=== PATIENT | male | born 1995 | race Caucasian/White ===

== ENCOUNTER 2018-04-22 17:00 | Emergency (ER) | payer OTHER ==
--- NOTE | 2018-04-22 19:02 | C.PDOC ---
History Of Present Illness 23 y/o male, w/PMhx of ? right medial malleolar fracture few months ago, presents to the ER c/o right ankle pain. Pt was running and twisted his right foot. Pt notes that he has been wearing an aircast.Denies having weakness and numbness. <Ariana Rooney - Last Filed: 04/22/18 20:58> History Per: Patient History/Exam Limitations: no limitations Onset/Duration Of Symptoms: Days Current Symptoms Are (Timing): Still Present Severity: Moderate - Ankle/Foot Description Of Injury: Twisted (right foot) <Ariana Rooney - Last Filed: 04/22/18 20:58> <Eugenia Almonte - Last Filed: 04/22/18 21:44> Time Seen by Provider: 04/22/18 17:54 Chief Complaint (Nursing): Lower Extremity Problem/Injury Past Medical History Reviewed: Historical Data, Nursing Documentation, Vital Signs Vital Signs: Last Vital Signs Temp 97.8 F 04/22/18 17:05 Pulse 70 04/22/18 17:05 Resp 20 04/22/18 17:05 BP 154/80 H 04/22/18 17:05 Pulse Ox 100 04/22/18 17:05 - Medical History PMH: No Chronic Diseases Other Surgeries: Hx of surgeries Family History: States: No Known Family Hx - Social History Hx Tobacco Use: No Hx Alcohol Use: No Hx Substance Use: Yes - Immunization History Hx Tetanus Toxoid Vaccination: Yes Hx Influenza Vaccination: No Hx Pneumococcal Vaccination: No <Ariana Rooney - Last Filed: 04/22/18 20:58> Vital Signs: Last Vital Signs Temp 97.8 F 04/22/18 17:05 Pulse 70 04/22/18 17:05 Resp 20 04/22/18 17:05 BP 154/80 H 04/22/18 17:05 Pulse Ox 100 04/22/18 21:01 <Eugenia Almonte - Last Filed: 04/22/18 21:44> Review Of Systems Musculoskeletal: Positive for: Other (right ankle pain) Neurological: Negative for: Weakness, Numbness <Ariana Rooney - Last Filed: 04/22/18 20:58> Physical Exam - Physical Exam Appears: Non-toxic, No Acute Distress Skin: Normal Color, Warm, Dry Head: Atraumatic, Normacephalic Eye(s): bilateral: Normal Inspection Nose: Normal Oral Mucosa: Moist Neck: Supple Chest: Symmetrical Extremity: Normal ROM, Tenderness (mild tenderness to anterior medial malleolus), No Swelling Pulses: Left Dorsalis Pedis: Normal, Right Dorsalis Pedis: Normal Neurological/Psych: Oriented x3, Normal Speech, Normal Motor, Normal Sensation <Ariana Rooney - Last Filed: 04/22/18 20:58> ED Course And Treatment O2 Sat by Pulse Oximetry: 100 (RA) Pulse Ox Interpretation: Normal <Ariana Rooney - Last Filed: 04/22/18 20:58> Medical Decision Making Medical Decision Making: Plan: --Tylenol PO --X-Ray- Right Ankle 2053 pt with ? new avulsion fx of medial malleolus, unclear if new or chronic. posterior splint and crutches. f/u ortho <Ariana Rooney - Last Filed: 04/22/18 20:58> Disposition Counseled Patient/Family Regarding: Studies Performed, Diagnosis, Need For Followup, Rx Given - Disposition Disposition Time: 20:58 <Ariana Rooney - Last Filed: 04/22/18 20:58> <Eugenia Almonte - Last Filed: 04/22/18 21:44> - Disposition Referrals: Zac Coon MD [Staff Provider] - Disposition: HOME/ ROUTINE Condition: GOOD Additional Instructions: Keep splint clean and dry. No weight bearing in right leg. Use crutches. Make follow up appointment with orthopedics. Tylenol for pain. Prescriptions: Acetaminophen [Tylenol 325mg tab] 650 mg PO Q6 #30 tab Instructions: Avulsion Fracture (DC) Forms: [employer] Keyboards (Malagasy) - Clinical Impression Clinical Impression: Avulsion fracture of right ankle - PA / COPPERSMITH APPRENTICE / Resident Statement MD/DO has reviewed & agrees with the documentation as recorded. - Scribe Statement The provider has reviewed the documentation as recorded by the Scribe Darion Muñoz Provider Attestation All medical record entries made by the Scribe were at my direction and personally dictated by me. I have reviewed the chart and agree that the record accurately reflects my personal performance of the history, physical exam, medical decision making, and the department course for this patient. I have also personally directed, reviewed, and agree with the discharge instructions and disposition. <Ariana Rooney - Last Filed: 04/22/18 20:58> - PA / COPPERSMITH APPRENTICE / Resident Statement MD/DO has reviewed & agrees with the documentation as recorded. <Eugenia Almonte - Last Filed: 04/22/18 21:44>
[2018-04-22 21:46] VITALS: BP 121/67; PULSE 94; RESP 18; TEMP 98.6; O2SAT 99
--- NOTE | 2018-04-23 08:55 | RAD ---
Date of service: 04/22/2018 PROCEDURE: Right Ankle Radiographs. HISTORY: medial mallolus pain COMPARISON: None FINDINGS: BONES: There are 2 discrete ossific densities medial to the medial malleolus. There is also deformity of the medial malleolus. Bone alignment and mineralization are normal. JOINTS: Normal. No osteoarthritis. Ankle mortise maintained. Talar dome intact SOFT TISSUES: Mild medial malleolar soft tissue swelling. OTHER FINDINGS: None. IMPRESSION: Findings are most compatible with age indeterminate but likely chronic avulsion fracture deformity in the medial malleolus.
== END 2018-04-22 21:45 | disposition home or self-care (01) ==
LOC: C.ER 17:00
DX: S82.891A Other fracture of right lower leg, initial encounter for closed fracture (principal); X50.9XXA Other and unspecified overexertion or strenuous movements or postures, initial encounter; Y93.02 Activity, running